=== PATIENT | female | born 1950 | race American Indian/Alaskan Native ===

== ENCOUNTER 2021-07-03 10:59 | Outpatient (CLI) | payer MEDICARE ==
--- NOTE | 2021-07-05 08:58 | Mammography Report ---
DIGITAL SCREENING MAMMOGRAM WITH CAD, 07/03/2021 CLINICAL INFORMATION / INDICATION: Routine screening mammography. TECHNIQUE: Digital bilateral 2D mammography was obtained in the craniocaudal and mediolateral obliqu e projections. This examination was interpreted with the benefit of Computer-Aided Detection analysis . COMPARISON: 01/03/2015, 01/25/2014 FINDINGS: Breast Density: The breasts are almost entirely fatty. No dominant mass, suspicious calcifications, or architectural distortion in either breast. Diffusely scattered bilateral coarse calcifications are again noted and have not significantly change d. IMPRESSION: No mammographic evidence of malignancy. Follow up recommendation: Routine yearly BI-RADS Category 2: BENIGN. A "normal" or negative report should not discourage follow up or biopsy of a clinically significant f inding. A written summary of these findings will be mailed to the patient. The patient will be entered into a mammography reporting system which will generate a reminder letter for the patient's next appointmen t at the appropriate interval. [employer] recommends yearly mammograms starting at age 40 and continuing as l gamaliel as a woman is in good health. Breast MRI is recommended for women with an approximate 20-25% or greater lifetime risk of breast cancer, including women with a strong family history of breast or ova nacho cancer or who have been treated for Hodgkin's disease. Signer Name: Brianna Corral MD Signed: 07/05/2021 8:54 AM Workstation Name: [email or web address]
== END 2021-07-03 11:00 | disposition home or self-care (01) ==
LOC: MAMMO 10:59
PROVIDERS: ATTEND Internal Medicine
DX: Z12.31 Encounter for screening mammogram for malignant neoplasm of breast (principal); R92.1 Mammographic calcification found on diagnostic imaging of breast
CPT/HCPCS: 77067